=== PATIENT | female | born 1985 | race Caucasian/White ===

== ENCOUNTER 2018-10-13 11:36 | Day surgery (SDC) | payer OTHER ==
[2018-10-09 17:30] VITALS: BMI 56.6
[2018-10-13] MEDS ORDERED: MIDAZOLAM HCL 2 MG/2 ML SINGLE DOSE VIAL ONE (13:57)
[2018-10-13] MEDS ORDERED: fentaNYL CITRATE 250 MCG/5 ML VIAL ONE (13:58)
[2018-10-13] MEDS ORDERED: ROPIVACAINE HCL 0.5% 30ML VIAL ONE ×2 (13:59)
[2018-10-13] MEDS ORDERED: VANCOMYCIN 1,000 MG VIAL (RESTRICTED TO ID ONLY) ONE (14:37)
[2018-10-13] MEDS ORDERED: GLYCOPYRROLATE 0.2 MG/1 ML VIAL ONE ×2 (14:37→15:32)
[2018-10-13] MEDS ORDERED: PROPOFOL 20 ML ONE ×2 (14:37)
[2018-10-13] MEDS ORDERED: SUCCINYLCHOLINE CHLORIDE 200 MG/10 ML VIAL ONE (14:38)
[2018-10-13] MEDS ORDERED: ROCURONIUM BROMIDE 50 MG/5 ML VIAL ONE (14:57)
[2018-10-13] MEDS ORDERED: METOPROLOL TARTRATE 5 MG/5 ML VIAL ONE (15:25)
[2018-10-13] MEDS ORDERED: PROMETHAZINE HCL 25 MG/1 ML VIAL IVPUSH PRN (16:05)
[2018-10-13] MEDS ORDERED: ONDANSETRON 4 MG/2 ML VIAL IVPUSH PRN (16:05)
[2018-10-13] MEDS ORDERED: oxyCODONE HCL 5 MG TABLET PO PRN ×2 (16:05)
[2018-10-13] MEDS ORDERED: ACETAMINOPHEN INJECTION 100 ML IVPB ONE (16:11)
[2018-10-13] MEDS ORDERED: ACETAMINOPHEN 1000 MG/100 ML VIAL (NON FORMULARY) IVPB ONE (16:13)
[2018-10-13] MEDS ORDERED: oxyCODONE HCL 5 MG TABLET ONE (16:46)
[2018-10-13 18:08] VITALS: BP 131/74; PULSE 80; TEMP 98
--- NOTE | 2018-10-16 09:04 | OP ---
DATE OF OPERATION: 10/13/2018 Done at [facility] SURGEON: Ana Zheng MD ROTARY DRYER OPERATOR: RC Anderson PREOPERATIVE DIAGNOSES: 1. Left shoulder adhesive capsulitis. 2. Left shoulder impingement syndrome. 3. Left shoulder superior labral tear, anterior and posterior synovitis. POSTOPERATIVE DIAGNOSES: 1. Left shoulder adhesive capsulitis. 2. Left shoulder impingement syndrome. 3. Left shoulder superior labral tear, anterior and posterior synovitis. PROCEDURE: 1. Left shoulder arthroscopy with lysis and resection of adhesions, CPT code 2925. 2. Left shoulder arthroscopy with subacromial decompression, CPT code 2926. 3. Left shoulder arthroscopy with debridement, CPT code 2923. FINDINGS: 1. Glenohumeral synovitis. 2. Posterior labral tearing around the superior labrum to 12 o'clock to the 3 o'clock position along the posterior labrum. 3. Glenohumeral scar tissue anteriorly. 4. Partial biceps tear less than 10%. 6. Partial rotator cuff tear less than 10%. 7. Subacromial space thickened scar tissue diffusely with extensive scar anterior, posterior, and centrally. 8. Type 2 acromial lateral spurring. 9. Intact infraspinatus. DESCRIPTION OF PROCEDURE: Informed consent was obtained. The patient was taken to the operating room, where the upper extremity was prepped and draped in a sterile fashion. Scalene block was performed by anesthesia. Using standard arthroscopic technique, a posterior incision portal was made, which allowed for introduction of a camera into the glenohumeral joint. Under direct visualization, an anterior incision and portal was made. Extensive and thickened synovitis was debrided. All loose cartilage was debrided. Rotator cuff was identified and evaluated, as were the subacromial and bursal surfaces. The posterior incision portal was redirected to the subacromial space, where a lateral incision and portal was made. Excessive and thickened synovium was removed throughout the subacromial space including the anterior scar tissue, posterior bursal and lateral bursa. The type 2 acromion was converted to a flattened type 1, removing the anterior and lateral spurring. Accessory portal was made at the acromioclavicular joint, removing the inferior spur of the distal clavicle at the acromioclavicular joint allowing for a distal clavicle partial resection. Shoulder was once again reexamined; all impingement was removed. The shoulder was drained. A single suture was placed in all portals and a sterile dressing was placed and the patient was transferred to recovery room without complication. The PA listed above was present and assisted at surgery. Their presence was absolutely medically necessary for the completion of the procedure. They helped hold the arthroscopy, pass instruments (and implants when indicated) and the procedure could not have been completed without their assistance. ANA ZHENG M.D. [id number]
--- NOTE | 2018-10-18 15:14 | PATH ---
Surgical Pathology Report Patient Name: NADIA GUTIERREZ [facility]. Rec. #: [id number] /Age/Gender: 1985 (Age: 33) / F Account: [id number] Location: [facility] Taken: 10/13/2018 Received: 10/13/2018 Reported: 10/18/2018 Physicians: Xavier Patel M.D. Specimen(s) Received SHAVINGS LEFT SHOULDER Clinical History Impingement left shoulder Final Diagnosis Shoulder, left, arthroscopic shavings: Fibrosynovial tissue, fibroadipose tissue and skeletal muscle. Electronically Signed Genevieve Fung M.D. Gross Description Received in formalin, labeled "left shoulder shaving," is a 4.2 x 4.0 x 0.3 cm. aggregate of anglin-yellow soft tissue fragments. A cash posting representative portion is submitted in one cassette. /10/16/201810/16/2018
== END 2018-10-13 17:30 | disposition home or self-care (01) ==
LOC: FASU 11:36
PROVIDERS: ATTEND Orthopaedic Surgery
PROC: 0MM24ZZ Reattachment of Left Shoulder Bursa and Ligament, Percutaneous Endoscopic Approach (ICD-10-PCS; 2018-10-13)
PROC: 0RNK4ZZ Release Left Shoulder Joint, Percutaneous Endoscopic Approach (ICD-10-PCS; 2018-10-13)
PROC: 0PBB4ZZ Excision of Left Clavicle, Percutaneous Endoscopic Approach (ICD-10-PCS; 2018-10-13)
PROC: 0RBK4ZZ Excision of Left Shoulder Joint, Percutaneous Endoscopic Approach (ICD-10-PCS; principal; 2018-10-13 15:14)
DX: M75.02 Adhesive capsulitis of left shoulder (principal); M75.42 Impingement syndrome of left shoulder; M65.812 Other synovitis and tenosynovitis, left shoulder; M25.712 Osteophyte, left shoulder; M24.112 Other articular cartilage disorders, left shoulder
CPT/HCPCS: 88304-TC; 94760; J0131